=== PATIENT | female | born 1985 | race Caucasian/White ===

== ENCOUNTER 2017-06-14 17:46 | Emergency (ER) | payer BC ==
[~2017-06-14] VITALS: Ht 157.5 cm; Wt 54.4 kg
[2017-06-14 18:04] VITALS: BP 124/77
== END 2017-06-14 19:31 | disposition home or self-care (01) ==
LOC: ER 17:49
DX: M54.5 Low back pain (principal); V49.59XA Passenger injured in collision with other motor vehicles in traffic accident, initial encounter; Y93.89 Activity, other specified; Y92.89 Other specified places as the place of occurrence of the external cause; Y99.9 Unspecified external cause status
CPT/HCPCS: A4606; Z7610